=== PATIENT | male | born 1970 | race Caucasian/White ===

== ENCOUNTER 2019-02-05 14:26 | Emergency (ER) | payer OTHER ==
--- NOTE | 2019-02-05 15:39 | ED Physician Documentation ---
PD HPI MALE - Stated complaint Stated Complaint: hemorrhoid - Chief complaint Chief Complaint: General - History obtained from History obtained from: Patient - History of Present Illness Timing - onset: How many days ago (3-4) Timing - duration: Days (several) Timing - details: Gradual onset, Still present (had area of tenderness and swelling at rectal area, without bleeding. [place] it was a hemorrhoids and using topical hemorrhoid cream without improvement. Having marked increase in pain and tenderness the past day or so.) Associated symptoms: Other (rectal swelling and tenderness). No: Back pain Similar symptoms before: Has not had sx before Review of Systems Constitutional: denies: Fever, Chills, Myalgias GI: denies: Abdominal Pain, Nausea, Vomiting, Constipation (but has firm stool), Diarrhea, Bloody / black stool PD PAST MEDICAL HISTORY - Past Medical History Cardiovascular: None Respiratory: None Neuro: None Endocrine/Autoimmune: None - Present Medications Home Medications: Ambulatory Orders Medication Instructions Recorded Confirmed Docusate Sodium 100 mg PO DAILY #30 capsule 02/05/19 - Allergies Allergies/Adverse Reactions: Allergies Allergy/AdvReac Type Severity Reaction Status Date / Time Sulfa (Sulfonamide Allergy Unknown Verified 02/05/19 14:37 Antibiotics) - Living Situation Living Situation: reports: With spouse/s.o., 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 Not wanting to sit down. ) - Abdomen Abdomen: Soft, Non tender - Male Male : Deferred - Rectal Rectal: Other (small external hemorrhoids with exception of one 2 cm firm, purple very tender hemorrhoid on left side. exam c/w thrombosed hemorrhoid. No bleeding nor signs of infection. ) Results - Vitals Vitals: Vital Signs - 24 hr 02/05/19 02/05/19 14:38 16:21 Temperature 37 C 36.9 C Heart Rate 68 83 Respiratory 15 18 Rate Blood Pressure 115/76 103/83 H O2 Saturation 98 99 Oxygen O2 Source Room air Procedures - General procedure General procedure: thrombosed external hemorrhoid: cleansed area with tap water. Local anesth with lido 1% with epi and then #11 scalpel used to incise the hemorrhoid and forceps removal of the clot, with decrease in rectal pain and decompression/improved color of the hemorrhoidal tissue. Departure - Departure Disposition: 01 Home, Self Care Clinical Impression: Thrombosed external hemorrhoid Condition: Stable Record reviewed to determine appropriate education?: Yes Instructions: ED Hemorrhoids Prescriptions: Docusate Sodium 100 mg PO DAILY #30 capsule Comments: Use the hemorrhoidal creams or ointments to the area to 3 times a day. Tonight and tomorrow you can do some warm soaks to provide still good blood flow to the area. This will help cleanse the area as well. He is a daily stool softener such as docusate for the next several days to week and then periodically if needed for firm stool to keep it slightly soft. Discharge Date/Time: 02/05/19 17:40
[2019-02-05] MEDS ORDERED: HYDROmorphone 1 MG/ML CARPUJECT IM STA (16:02)
[2019-02-05] MEDS ORDERED: ONDANSETRON ODT 4 MG TABLET TL STA (16:02)
[2019-02-05] MEDS ORDERED: LIDOCAINE MPF 1%-EPI 1:200000 30 ML VIAL SUBQ STA (16:03)
[2019-02-05 16:23] VITALS: BP 103/83
[2019-02-05] MEDS ORDERED: LIDOCAINE 1%-EPI 1:100000 20 ML MDV ONE (17:01)
== END 2019-02-05 17:40 | disposition home or self-care (01) ==
LOC: ED 14:26
DX: K64.5 Perianal venous thrombosis (principal)
CPT/HCPCS: 46083; 96372; 99283; J1170; Q0162

== ENCOUNTER 2023-10-17 12:13 | Outpatient (CLI) | payer OTHER | END 2023-10-17 12:14 | disposition home or self-care (01) | LOC: LAB.N 12:13 | PROVIDERS: ATTEND Family Medicine | DX: Z12.5 Encounter for screening for malignant neoplasm of prostate (principal); Z11.3 Encounter for screening for infections with a predominantly sexual mode of transmission | CPT/HCPCS: 36415; 84153; 86803; 87340 ==